=== PATIENT | female | born 1960 | race Caucasian/White ===

== ENCOUNTER 2017-06-09 09:26 | Inpatient (IN) | payer MEDICARE ==
[~2017-06-09] VITALS: Ht 162.6 cm; Wt 83.9 kg
--- NOTE | ~2017-06-09 | WRIGHTHP ---
[place], [place] PATIENT HISTORY AND PHYSICAL EXAM NAME: JOSHUA NIETO UNIT #: [id number] ROOM: 317 DOCTOR: VJ MADDOX MD BIRTHDATE: [birth year] DOS: 06/09/2017 CHIEF COMPLAINT: "I relay I am not suicidal, I did tell my son that though." HISTORY OF PRESENT ILLNESS: This is a 56-year-old white female who was sent here on an involuntary basis from [facility]. The patient had presented there having been brought there because of suicidal statements. The patient had voiced that she would be better off and that her family would be better off without her. She traces much of her depression to the anniversary of her daughter's approximately 4 years ago following an overdose of heroin. She does state that every year around the anniversary of her daughter's , she becomes very sad and blue, becomes tearful and cries a lot. The patient misses her deeply. She convincingly denies suicidal thoughts at the present time; however, she is very fixated on attempting to get out of the hospital. 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 The patient reports having been on an unknown antidepressant years ago, but did not state that it was extremely helpful. PAST MEDICAL HISTORY: The patient does have a history of allergies to AVONEX AND LATEX. The patient does have a history of multiple sclerosis as well. MENTAL STATUS: The patient is alert and oriented to person, place, and time. Mood is overwhelmingly depressed and she was on the verge of tears through most of the interview. She does endorse multiple neurovegetative symptoms. There are no symptoms of hypomania or gene. There are no auditory or visual hallucinations. No delusions, no paranoia. Short, intermediate, and long-term memory are fully intact. DIAGNOSIS: Major depression, recurrent, severe. PLAN: I will discontinue her Trintellix in lieu of Remeron 15 mg at bedtime. I will also discontinue the PRNs of Benadryl, Haldol and utilize a p.r.n. of Xanax, which she was taking at home. Per her report, she very infrequently uses it. I will discontinue her straight Klonopin along with the same lines. I will have pastoral counseling come in to sit with her and meet some of her spiritual needs. We will discharge then back home when psychiatrically stable. [place], [place] PATIENT HISTORY AND PHYSICAL EXAM NAME: JOSHUA NIETO UNIT #: [id number] ROOM: [facility] DOCTOR: VJ MADDOX MD BIRTHDATE: [birth year] VJ MADDOX MD CM:HISPHYS:PATIENT HISTORY AND PHYSICAL EXAMINATION [id number] VJ MADDOX MD 06/10/17 1047 interface
--- NOTE | ~2017-06-09 | DS ---
[place], [place] DISCHARGE SUMMARY NAME: JOSHUA NIETO UNIT #: [id number] ROOM: 317 DOCTOR: MICKI MELCHOR BIRTHDATE: [birth year] DOS: 06/11/2017 CHIEF COMPLAINT: "I would love to go home." HISTORY OF PRESENT ILLNESS: The patient is a 56-year-old female who was sent involuntarily to the [facility]al [facility] from [facility] [place]. She was with her son at [facility] when she said that she felt like she wanted to be with her daughter who was from a drug overdose. It was the anniversary of her daughter's and she states that she always becomes emotional at that time. Her family noted that she had been very bad , tearful a lot of time and became concerned with her and so called authority who took her to the Emergency Room and she was admitted for med stabilization. PAST MEDICAL HISTORY: She has a history of meth and has in the past been treated with antidepressant because of the same issues, would becoming depressed and tearful around the time that her daughter passed. SUMMARY OF HOSPITAL COURSE: She was on Trintellix, which was not effective in treating her depression, so that was changed to Remeron 15 mg, which has been very helpful for her. She reports that she is sleeping better. She states that she will always be blue at this time, but she has no suicidal or homicidal intent. That when she said she wanted to be with her daughter that she meant she wanted her daughter to be here with her. MENTAL STATUS AT DISCHARGE: She is alert and oriented. She was euthymic. She was interactive on the unit. Took advantage of the opportunity to speak with people regarding her grief and now states that she need to go through ritual that they have at home as far as, releasing balloon and going to gravesite things like that, so she is planning on doing that today and she did state that makes her feel a lot better that she is going to be able to do that. DIAGNOSIS: Major depressive disorder, recurrent and severe with suicidal ideation. DISPOSITION: She will be discharged home into her own care. She will also follow up outpatient. She is thinking outpatient program, which she has done before. Her scripts were printed and will be sent with her at discharge. [place], [place] DISCHARGE SUMMARY NAME: JOSHUA NIETO UNIT #: [id number] ROOM: 317 DOCTOR: MICKI MELCHOR BIRTHDATE: [birth year] Micki Melchor NP CM:DISCHARG [id number] MICKI MELCHOR 06/11/17 1210 interface
[2017-06-09] MEDS ORDERED: PROAIR HFA8.5 GM INH (11:04)
[2017-06-09] MEDS ORDERED: XANAX2 M1 PO (11:04)
[2017-06-09] MEDS ORDERED: TRINTELLIX20 MG PO (11:05)
[2017-06-09] MEDS ORDERED: IBU800 M1 PO (11:05)
[2017-06-09] MEDS ORDERED: CELEXA40 MG PO (11:06)
[2017-06-09] MEDS ORDERED: NEURONTIN600 MG PO (11:06)
[2017-06-09] MEDS ORDERED: CARDIZEM CD180 MG PO (11:07)
[2017-06-09] MEDS ORDERED: TECFIDERA240 M2 PO (11:08)
[2017-06-09] MEDS ORDERED: BACLOFEN20 M1 PO (11:10)
[2017-06-09 15:10] VITALS: BP 127/69
[2017-06-09] MEDS ORDERED: DAILY VALUE1 EACH PO (16:33)
[2017-06-09] MEDS ORDERED: ARTIFICIAL TEA3.5 G1 OP (16:33)
[2017-06-09 19:58] VITALS: BP 108/60
[2017-06-10 07:43] LABS: ALBUMIN 3.5 gm/dl (3.1-4.5); ALKALINE PHOSPHATASE 125 U/L (45-117); BUN 9 mg/dl (7-24); CHLORIDE 108 mmol/L (98-107); CREATININE 0.48 mg/dL (0.55-1.02); POTASSIUM 4.3 mmol/L (3.5-5.1); SGOT/AST 17 IU/L (3-35); SGPT/ALT 18 U/L (12-78); SODIUM 145 mmol/L (136-145); TOTAL PROTEIN 6.3 gm/dL (6.4-8.2)
[2017-06-10 08:11] VITALS: BP 115/62
[2017-06-10 08:11] LABS: BASO # 0.1 10*3/uL (0.0-0.1); BASO % 0.5 % (0.0-1.0); EOS # 0.1 10*3/uL (0.0-0.4); EOS % 1.1 % (1.0-4.0); HEMATOCRIT 44.7 % (37.0-47.0); HEMOGLOBIN 15.1 g/dl (12.0-16.0); LYMPH # 1.4 10*3/uL (1.3-4.4); LYMPH % 14.4 % (27.0-41.0); MEAN CELL VOLUME 96.1 fl (81.0-99.0); MEAN CORPUSCULAR HGB 32.5 pg (27.0-31.0); MEAN CORPUSCULAR HGB CONC 33.8 g/dl (33.0-37.0); MEAN PLATELET VOLUME 12.4 fl (9.6-12.3); MONO # 0.6 10*3/uL (0.1-1.0); MONO % 6.2 % (3.0-9.0); NEUT # 7.5 10*3/uL (2.3-7.9); NEUT % 77.5 % (47.0-73.0); PLATELET COUNT AUTOMATED 227 10*3/uL (130-400); RED BLOOD COUNT 4.65 10*6/uL (4.10-5.10); RED CELL DISTRI WIDTH 13.3 % (0-14.5); WHITE BLOOD COUNT 9.6 10*3/uL (4.8-10.8)
[2017-06-10 08:14] LABS: BILIRUBIN NEGATIVE (NEGATIVE); BLOOD NEGATIVE (NEGATIVE); CLARITY SL CLOUDY (CLEAR); COLOR YELLOW (YELLOW); GLUCOSE NEGATIVE (NEGATIVE); KETONE NEGATIVE (NEGATIVE); LEUKO ESTERASE NEGATIVE (NEGATIVE); NITRITE NEGATIVE (NEGATIVE); PH 5.5 (5.0-9.0); UROBILINOGEN 0.2 E.U./dl (0.2-1.0)
[2017-06-10 08:31] LABS: VITAMIN D, 25-HYDROXY 33.9 ng/mL (30-100)
[2017-06-10 08:53] LABS: BACTERIA 2+; MUCOUS 1+
[2017-06-10 20:09] VITALS: BP 136/70
[2017-06-11 09:28] VITALS: BP 110/70
[2017-06-11] MEDS ORDERED: GABAPENTIN TAB600 MG PO (09:42)
[2017-06-11] MEDS ORDERED: MIRTAZAPINE15 M2 PO (09:42)
[2017-06-11 19:07] LABS: NEURONTIN (GABAPENTIN) 4.3 ug/mL (4.0-16.0)
== END 2017-06-11 15:25 | disposition home or self-care (01) | DRG 885 ==
LOC: 3N 09:26
PROVIDERS: Psychiatry & Neurology Psychiatry; ADMIT Psychiatry & Neurology Psychiatry
DX: F33.2 Major depressive disorder, recurrent severe without psychotic features (principal); R45.851 Suicidal ideations; I47.1 Supraventricular tachycardia; F17.200 Nicotine dependence, unspecified, uncomplicated; R82.71 Bacteriuria; G35 Multiple sclerosis; I73.00 Raynaud's syndrome without gangrene; Z82.49 Family history of ischemic heart disease and other diseases of the circulatory system; Z80.3 Family history of malignant neoplasm of breast; Z80.0 Family history of malignant neoplasm of digestive organs; Z71.6 Tobacco abuse counseling; Z79.51 Long term (current) use of inhaled steroids; Z88.8 Allergy status to other drugs, medicaments and biological substances; Z91.040 Latex allergy status; Z79.1 Long term (current) use of non-steroidal anti-inflammatories (NSAID); Z79.899 Other long term (current) drug therapy